=== PATIENT | female | born 1975 | race Two or more races ===

== ENCOUNTER 2025-03-19 09:00 | Day surgery (SDC) | payer OTHER ==
[2025-03-15 13:09] VITALS: BP 128/88
[~2025-03-19] VITALS: Ht 162.6 cm; Wt 74.4 kg
[~2025-03-19 09:00] MED LIST: ALPRAZOLAM0.5 MG; GLIPIZIDE XL5 MG; LEVOTHYROXINE; LOSARTAN-HCTZ1 EACH; METFORMIN HCL1000 M2; ROSUVASTATIN CA20 MG; TAMOXIFEN CITRA20 MG
[2025-03-19] MEDS ORDERED: CEFAZOLIN SODIUM 1,000 MG VIAL ONE (09:59)
[2025-03-19] MEDS ORDERED: BUPIVACAINE HCL/MPF 0.5% 30ML VIAL ONE (14:35)
[2025-03-19] MEDS ORDERED: HEPARIN SODIUM,PORCINE/PF 100 UNIT/ML SYRINGE IV ONE (14:35)
[2025-03-19] MEDS ORDERED: LIDOCAINE HCL 1%/EPINEPHRINE 20ML VIAL IJ ONE (14:36)
[2025-03-19] MEDS ORDERED: TRAM1TAB98 PO (14:45)
== END 2025-03-19 17:55 | disposition home or self-care (01) ==
LOC: CIR.AMB 09:00
PROVIDERS: ATTEND Surgery
DX: C50.011 Malignant neoplasm of nipple and areola, right female breast (principal); C50.012 Malignant neoplasm of nipple and areola, left female breast
CPT/HCPCS: 36561; C1751